=== PATIENT | male | born 1995 | race Caucasian/White ===

== ENCOUNTER 2018-07-04 20:25 | Emergency (ER) | payer BC ==
[~2018-07-04] VITALS: Ht 185.4 cm; Wt 77.2 kg
[~2018-07-04 20:25] MED LIST: OXYC-302 PO
[2018-07-04 20:36] VITALS: BP 125/78
== END 2018-07-04 22:34 | disposition left against medical advice (07) ==
LOC: ED 22:28
DX: R07.9 Chest pain, unspecified (principal); R06.00 Dyspnea, unspecified; J45.909 Unspecified asthma, uncomplicated
CPT/HCPCS: 71046; 93005; 99284